=== PATIENT | female | born 1995 | race Two or more races ===

== ENCOUNTER 2022-12-04 07:02 | Outpatient (OUT) | payer OTHER, SELFPAY ==
[2022-12-04 07:28] LABS: Glucose Fasting 83 mg/dL (74-106)
[2022-12-04 09:00] LABS: Glucose 1 Hour 171 mg/dL
[2022-12-04 09:49] LABS: Glucose 2 Hour 130 mg/dL
[2022-12-04 11:14] LABS: Glucose 3 Hour 128 mg/dL
== END 2022-12-04 07:03 ==
PROVIDERS: Family Provider Specialist; PCP Obstetrics & Gynecology; Visit Provider Obstetrics & Gynecology
DX: R73.09 Other abnormal glucose (principal)
CPT/HCPCS: 36415; 82951; 82952

== ENCOUNTER 2022-12-16 10:21 | Outpatient (OUT) | payer OTHER, SELFPAY ==
--- NOTE | 2022-12-16 10:24 | US_ITS ---
[address] [address] Patient Name: DENISSE LOCKETT MRN: [id number] date: 1995 Sex: F Assigned Patient Location: US Current Patient Location: US Accession/Order Number: [id number] Exam Date: 12/16/2022 10:25 Report Date: 12/16/2022 15:33 At the request of: TOÑA AYAAL Procedure: US OB incomplete anatomy EXAMINATION: US OB incomplete anatomy HISTORY: INCOMPLETE ANATOMY FOLLOW UP HEART COMPARISON: No relevant comparison available. FINDINGS: Presentation: Transverse Heart rate: 150 bpm Anatomy: Normal four-chamber heart and cardiac outflow tracts. IMPRESSION: 1. Single live intrauterine 20 weeks 4 days. 2. Normal appearance of four-chamber heart and cardiac outflow tracts. Electronically authenticated by: ALEXA MEMBRENO Date: 12/16/2022 15:33
== END 2022-12-16 10:22 ==
LOC: US 10:22
PROVIDERS: Family Provider Specialist; PCP Obstetrics & Gynecology; Visit Provider Obstetrics & Gynecology
DX: Z36.2 Encounter for other antenatal screening follow-up (principal)
CPT/HCPCS: 76815

== ENCOUNTER 2023-01-01 15:06 | Outpatient (OUT) | payer OTHER, SELFPAY ==
--- NOTE | 2023-01-01 15:08 | US_ITS ---
[address] [address] Patient Name: DENISSE LOCKETT MRN: [id number] date: 1995 Sex: F Assigned Patient Location: US Current Patient Location: US Accession/Order Number: [id number] Exam Date: 01/01/2023 15:08 Report Date: 01/01/2023 16:57 At the request of: TOÑA AYALA Procedure: US OB growth EXAMINATION: US OB growth HISTORY: Size and consistent with dates COMPARISON: No relevant comparison available. FINDINGS: position: Cephalic presentation, longitudinal lie Amniotic fluid volume: 24.9 cm, polyhydramnios Largest fluid pocket: 5.4 cm Heart rate 164 bpm BPD: 7.8 cm, 31 weeks 2 days, 50% Head circumference: 29.3 cm, 32 weeks 3 days, 57% Abdominal circumference: 26.6 cm, 30 weeks 5 days, 44% Femur length: 6 cm, 31 weeks 1 day, 45% Estimated weight: 1699 g, 3 lbs. 12 oz., 46% Femur length BPD: 77 Femur length abdominal circumference: 22.5 50 minute] LUNGS: 20.4 Heart rate: 164 bpm Clinical age: 30 weeks [address]: 03/06/2023 Ultrasound age: 31 weeks [address]: 03/27/2023 IMPRESSION: Polyhydramnios, otherwise normal interval growth Electronically authenticated by: LYLA GOMEZ Date: 01/01/2023 16:57
== END 2023-01-01 15:07 | disposition home or self-care (01) ==
LOC: US 15:06
PROVIDERS: Family Provider Specialist; PCP Obstetrics & Gynecology; Visit Provider Obstetrics & Gynecology
DX: O26.843 Uterine size-date discrepancy, third trimester (principal); Z3A.31 31 weeks gestation of pregnancy; O40.3XX0 Polyhydramnios, third trimester, not applicable or unspecified
CPT/HCPCS: 76816

== ENCOUNTER 2023-02-12 20:28 | Outpatient (REF) | payer OTHER, SELFPAY | END 2023-02-12 20:29 | disposition home or self-care (01) | LOC: LAB 20:28 | PROVIDERS: Family Provider Specialist; PCP Obstetrics & Gynecology; Visit Provider Obstetrics & Gynecology | DX: Z34.93 Encounter for supervision of normal pregnancy, unspecified, third trimester (principal) | CPT/HCPCS: 87081 ==

== ENCOUNTER 2023-03-02 05:20 | Inpatient (IN) | payer OTHER, SELFPAY ==
[2023-03-02] VITALS (37 sets, daily range): BP systolic 73–100; BP diastolic 45–61; PULSE 62–86; RESP 8–21; TEMP 36.1–36.7; O2SAT 99–100
[2023-03-02] MEDS: 0.9 % SODIUM CHLORIDE 1,000 ML 1000 ML IV (06:00)
[2023-03-02 06:18] LABS: Basophils Percent Auto 0.4 % (0.2-2.0); Eosinophils Absolute Auto 0.1 10^3/uL (0.0-0.7); Eosinophils Percent Auto 1.2 % (0.9-7.0); Hematocrit 26.2 % (36.0-48.0); Hemoglobin 8.2 g/dL (12.0-16.0); Immature Granulocytes Abs Auto 0.03 10^3/uL (0.00-0.03); Immature Granulocytes Pct Auto 0.4 % (0.0-0.5); Lymphocytes Absolute Auto 2.1 10^3/uL (1.2-3.8); Lymphocytes Percent Auto 25.9 % (20.5-60.0); Mean Corpuscular HGB Conc 31.3 g/dL (29.9-35.2); Mean Corpuscular Hemoglobin 23.9 pg (26.7-34.0); Mean Corpuscular Volume 76.4 fL (81.0-99.0); Monocytes Absolute Auto 0.7 10^3/uL (0.3-0.8); Monocytes Percent Auto 8.8 % (1.7-12.0); Neutrophils Absolute Auto 5.1 10^3/uL (1.4-6.5); Neutrophils Percent Auto 63.3 % (43.0-75.0); Platelet Count 138 10^3/uL (150-450); Red Blood Count 3.43 10^6/uL (4.20-5.40); Red Cell Distribution Width 15.1 % (11.0-15.0); White Blood Count 8.1 10^3/uL (4.0-11.0)
[2023-03-02 06:28] LABS: Amphetamine Screen Urine NEGATIVE (NEGATIVE); Barbiturates Screen Urine NEGATIVE (NEGATIVE); Benzodiazepines Screen Urine NEGATIVE (NEGATIVE); Buprenorphine Screen Urine NEGATIVE (NEGATIVE); Cannabinoid Screen Urine NEGATIVE (NEGATIVE); Cocaine Screen Urine NEGATIVE (NEGATIVE); Methadone Screen Urine NEGATIVE (NEGATIVE); Methamphetamines Screen Urine NEGATIVE (NEGATIVE); Opiate Screen Urine NEGATIVE (NEGATIVE); Oxycodone Screen Urine NEGATIVE (NEGATIVE); Phencyclidine Screen Urine NEGATIVE (NEGATIVE); Tricyclic Antidepressant Urine NEGATIVE (NEGATIVE)
[2023-03-02] MEDS: 0.9 % SODIUM CHLORIDE 1,000 ML 125 ML IV (06:45)
[2023-03-02] MEDS: CEFAZOLIN SODIUM/DEXTROSE 2 GM/50 ML PIGGYBACK IV (07:13)
[2023-03-02] MEDS: FAMOTIDINE/PF 20 MG/2 ML VIAL IV (07:33)
[2023-03-02] MEDS: CITRIC ACID/SODIUM CITRATE 30 ML SOLUTION ORACIT SHOHL'S SOLN PO (07:33)
--- NOTE | 2023-03-02 08:41 | PM.OBPRCCS ---
Procedure Pre-op/Post-op diagnoses: Pre-Op/Post-Op Diagnoses Operation Date: 03/02/23 07:30 <No data on this case meets the specified criteria> Procedure: Procedures Operation Date: 03/02/23 07:30 Actual Procedure Side Surgeon p Repeat With Bilateral Salpingectomy Bilateral Mike Jimenes DO Statistician Applied: Estefany Argueta Estimated blood loss (mL): 575 Disposition: floor Anesthesia type: Spinal
--- NOTE | 2023-03-02 08:41 | PM.ONB ---
Brief Operative Note Date of procedure: 03/02/23 Pre-op diagnosis: iup at 39wks, previous c/s, desires permanent sterilization, multiparity Post-op diagnosis: same as pre-op Procedure: NAME OF PROCEDURE: [ section with bilateral salpingectomy ] PROCEDURE: Patient was taken back to the Operating Room where she was given a spinal anesthesia with Duramorph without difficulty. She was prepped and draped in the normal sterile fashion. A Pfannenstiel skin incision was then made 2?cm above the symphysis pubis and carried down to underlying rectus fascia using a Bovie. The fascia was incised in the midline and extended laterally using Barksdale scissors. Two Adalid clamps were placed on the superior aspect of the fascia and dissected off the underlying rectus muscles. The same was performed on the inferior aspect as well. The muscles were then in the midline. Peritoneum was identified and entered bluntly. The peritoneum was then extended superiorly and inferiorly with good visualization of the bladder. The bladder blade was inserted. Vesicouterine peritoneum was identified, tented up, and entered with Metzenbaum scissors. A bladder flap was then created digitally. The bladder blade was reinserted. A low transverse incision was made on the patient's uterus and extended laterally digitally. The infant was then delivered atraumatically after the bladder blade was removed in the cephalic position. The cord was clamped and cut. Cord blood was obtained. The was handed off to awaiting team. The patient's placenta was spontaneously delivered. The uterus was then exteriorized. The uterus was cleared of all clots and debris. The bladder blade was reinserted. The patient's uterine incision was closed using #0 Vicryl in a running lock fashion. Excellent hemostasis was assured.? The rt tube was identified and grasped with babock, the ligasure was used to transect and ligate the tube in its entirity, this was done on the contralateral side as well. The uterus was then returned to the patient's abdomen. The patient's abdomen was copiously irrigated using warm saline. Peritoneal gutters were cleared of all clots and debris. Again excellent hemostasis was assured. The patient's fascia was closed using #0 Vicryl in a running fashion. The patient's skin was closed using 4-0 Vicryl subcuticularly. The patient tolerated the procedure well. Sponge, lap, and needle counts were correct x2. The patient was taken to the Recovery Room in stable condition. Anesthesia: spinal Surgeon: Mike Jimenes [employer] Bpm Consultant: Estefany Argueta Estimated blood loss (mL): 575 Pathology: none sent Condition: stable Disposition: floor
[2023-03-02] MEDS: LACTATED RINGER'S SOLUTION 1,000 ML 50 ML IV (09:09)
[2023-03-02] MEDS: OXYTOCIN/0.9 % SODIUM CHLORIDE 20 UNITS/1,000 ML PLAST..BAG 20 UNIT IV (09:49)
[2023-03-02] MEDS: ONDANSETRON PF 4 MG/2 ML VIAL IV (11:27)
[2023-03-02] MEDS: CEFAZOLIN SODIUM/DEXTROSE,ISO 2 GM/50 ML PIGGYBACK IV (12:40)
[2023-03-02] MEDS: PROMETHAZINE HCL 25 MG/ML VIAL IM (14:37)
[2023-03-02] MEDS: KETOROLAC TROMETHAMINE 30 MG/ML VIAL IVP ×2 (16:09→23:13)
[2023-03-02] MEDS: ENOXAPARIN SODIUM 40 MG/0.4 ML SYRINGE SUBQ (21:17)
[2023-03-03] VITALS (23 sets, daily range): BP systolic 86–106; BP diastolic 48–62; PULSE 68–82; RESP 16–18; TEMP 36.5–37.1; O2SAT 97–100
[2023-03-03] MEDS: KETOROLAC TROMETHAMINE 30 MG/ML VIAL IVP ×3 (05:17→20:42)
[2023-03-03] MEDS: SIMETHICONE 80 MG TAB.CHEW PO (05:17)
[2023-03-03 06:26] LABS: Basophils Percent Auto 0.2 % (0.2-2.0); Eosinophils Absolute Auto 0.1 10^3/uL (0.0-0.7); Eosinophils Percent Auto 0.6 % (0.9-7.0); Immature Granulocytes Abs Auto 0.05 10^3/uL (0.00-0.03); Immature Granulocytes Pct Auto 0.4 % (0.0-0.5); Lymphocytes Absolute Auto 1.8 10^3/uL (1.2-3.8); Lymphocytes Percent Auto 15.8 % (20.5-60.0); Mean Corpuscular HGB Conc 30.7 g/dL (29.9-35.2); Mean Corpuscular Hemoglobin 24.5 pg (26.7-34.0); Mean Corpuscular Volume 79.8 fL (81.0-99.0); Mean Platelet Volume 12.6 fL (9.5-13.5); Monocytes Percent Auto 8.9 % (1.7-12.0); Neutrophils Absolute Auto 8.7 10^3/uL (1.4-6.5); Neutrophils Percent Auto 74.1 % (43.0-75.0); Platelet Count 139 10^3/uL (150-450); Red Blood Count 2.53 10^6/uL (4.20-5.40); Red Cell Distribution Width 15.2 % (11.0-15.0); White Blood Count 11.7 10^3/uL (4.0-11.0)
[2023-03-03 06:30] LABS: Hematocrit 20.2 % (36.0-48.0); Hemoglobin 6.2 g/dL (12.0-16.0)
--- NOTE | 2023-03-03 07:31 | W.PC.ACHO ---
Registration Status: ADM IN Primary Language: South African Preferred Language: South African Active Medications Generic Name Dose Route Start Last Admin Trade Name Freq PRN Reason Stop Dose Admin Al Hydroxide/Mg Hydroxide 2,400 mg 03/02/23 08:42 Magnesium Hydroxide 2,400 Mg/10 Ml Oral.Susp PO Q6H PRN Dyspepsia Diphenhydramine HCl 25 mg 03/02/23 08:42 Diphenhydramine Hcl 50 Mg/Ml (1ml) Vial IV 03/03/23 08:44 Q6H PRN Itching Docusate Sodium 100 mg 03/03/23 09:00 Docusate Sodium 100 Mg Capsule PO BID LACHELLE Enoxaparin Sodium 40 mg 03/02/23 21:00 03/02/23 21:17 Enoxaparin Sodium 40 Mg/0.4 Ml Syringe SUBQ 40 mg Q24H LACHELLE Administration Lactated Ringer's 1,000 mls @ 125 mls/hr 03/02/23 08:45 Lactated Ringers IV .Q8H LACHELLE Sodium Chloride 1,000 mls @ 125 mls/hr 03/03/23 07:01 Sodium Chloride 0.9% 1,000 Ml IV Q8H LACHELLE Ibuprofen 800 mg 03/02/23 08:42 Ibuprofen 400 Mg Tablet PO Q8H PRN Pain Ketorolac Tromethamine 30 mg 03/02/23 08:42 03/03/23 05:17 Ketorolac Tromethamine 30 Mg/Ml Vial IVP 03/04/23 08:43 30 mg Q6H PRN Administration Pain Ondansetron HCl 4 mg 03/02/23 08:42 03/02/23 11:27 Ondansetron Pf 4 Mg/2 Ml Vial IV 4 mg Q6H PRN Administration Nausea And Vomiting Ondansetron HCl 4 mg 03/02/23 08:42 Ondansetron 4 Mg Rapdis Tablet PO Q6H PRN Nausea And Vomiting Oxycodone/Acetaminophen 1 tab 03/02/23 08:42 Oxycodone Hcl/Acetaminophen 1 Tab Tablet PO Q4H PRN Pain Scale 4-6 Oxycodone/Acetaminophen 2 tab 03/02/23 08:42 Oxycodone Hcl/Acetaminophen 1 Tab Tablet PO Q4H PRN Pain Scale 7-10 Promethazine HCl 25 mg 03/02/23 14:26 03/02/23 14:37 Promethazine Hcl 25 Mg/Ml Vial IM 25 mg Q6H PRN Administration Nausea And Vomiting Senna 17.2 mg 03/02/23 20:00 Sennosides 8.6 Mg Tablet PO QHS PRN Constipation Simethicone 80 mg 03/02/23 08:42 03/03/23 05:17 Simethicone 80 Mg Tab.Chew PO 80 mg QID PRN Administration Abdominal Distention Diet Category Date Time Status Regular Consistency Diet Diet 03/02/23 Dinner Active Consults Category Date Time Status Consult to Anesthesiology Routine Cons 03/02/23 07:30 Ordered Respiratory Lung sounds [Throughout] clear Lung sounds [Throughout] clear Lung sounds [Throughout] clear Lung sounds [Throughout] clear Lung sounds [Throughout] clear Lung sounds [Throughout] clear Lung sounds [Throughout] clear Pulse Oximetry 100 Pulse Oximetry 100 Pulse Oximetry 100 Pulse Oximetry 100 Pulse Oximetry 100 Pulse Oximetry 100 Pulse Oximetry 100 Pulse Oximetry 100 Pulse Oximetry 100 Pulse Oximetry 99 Pulse Oximetry 100 Pulse Oximetry 100 Oxygen Delivery Method Room Air Oxygen Delivery Method Room Air Oxygen Delivery Method Room Air Oxygen Delivery Method Room Air Oxygen Delivery Method Room Air Oxygen Delivery Method Room Air Oxygen Delivery Method Room Air Oxygen Delivery Method Room Air Cardiology Heart Sounds Strong,Regular Heart Sounds Strong,Regular Heart Sounds Regular Heart Sounds Strong,Regular Bowels Bowel Pattern No Bowel Movement Bowel Pattern No Bowel Movement Renal Bladder Pattern Continent Bladder Pattern Continent
[2023-03-03] MEDS: DOCUSATE SODIUM 100 MG CAPSULE PO ×2 (09:11→20:42)
--- NOTE | 2023-03-03 09:51 | PM.OBPN ---
OB - PN: Subj Subjective Patient comments: incisional pain and other (shoulder pain ) [place] status: doing well feeding status: exclusively Exam Narrative Exam Narrative: patient states she feels tired and her shoulders hurt. She does rate her pain a 5 but states she did not take any Percocet or ask for any. I did discuss with her pain Meds and they are ordered and are okay to take with . PVU Constitutional Vital Signs, click to edit/add: Last Vital Signs Temp 97.7 F 03/03/23 09:18 Pulse 82 03/03/23 09:18 Resp 16 03/03/23 09:18 BP 93/62 03/03/23 09:18 Pulse Ox 100 03/03/23 09:18 O2 Del Method Room Air 03/03/23 09:18 Documenting provider has reviewed patient's vital signs: yes Common normals: no apparent distress and oriented x3 General appearance: cooperative and comfortable Orientation/consciousness: Yes awake, Yes oriented to person, Yes oriented to place and Yes oriented to time Eye General eye: normal appearance of both eyes Neck & C-Spine Common normals: full ROM and no lymphadenopathy Lymph Lymphatic: no lymphadenopathy noted Chest Common normals: inspection of chest normal Respiratory Common normals: normal respiratory effort, no retractions, no use of accessory muscles and clear to auscultation bilaterally Effort & inspection: able to speak in complete sentences and symmetric chest movement Cardio Common normals: regular rate, regular rhythm and no murmurs GI Common normals: Normal to inspection, nondistended, normoactive bowel sounds present Auscultation: normoactive bowel sounds and other (passing gas ) Palpation: soft and other (FF U/-1) Common normals: no CVA tenderness and external appearance normal Extremity Common normals: normal to inspection, full ROM, normal capillary refill and no calf tenderness (Taylor's negative ) Neuro Common normals: oriented x3 Sensorium/orientation: awake, alert, oriented to person, oriented to place and oriented to time Psych Common normals: mental status grossly normal, thought process normal, cooperative, affect normal and speech normal Results Labs Labs: Short CBC 03/03/23 Range/Units 06:21 WBC 11.7 H (4.0-11.0) 10^3/uL Hgb 6.2 L* D (12.0-16.0) g/dL Hct 20.2 L* (36.0-48.0) % Plt Count 139 L (150-450) 10^3/uL Pulse Oximetry SpO2 results: 100 OB - PN: A/P Assessment and Plan (1) care following delivery: Plan Hgb count 6.2, patient is slightly symptomatic with SOB with ambulating. No chest pain, no dizziness, no headache. will transfuse 1 unit of blood. Plan - day: 1 Plan: routine postop care Time Spent with Patient Time: Total time spent is greater than 50% in coordination of care (as documented) at patient's floor/unit and/or counseling patient: Total time spent with greater than 50% in coordination of care (as documented) at patient's floor/unit and/or counseling patient: less than 15 minutes
--- NOTE | 2023-03-03 19:15 | W.PC.ACHO ---
Registration Status: ADM IN Primary Language: Dominican Preferred Language: Dominican Report given to Morgan palacios RN. Care relinquished. Active Medications Generic Name Dose Route Start Last Admin Trade Name Freq PRN Reason Stop Dose Admin Al Hydroxide/Mg Hydroxide 2,400 mg 03/02/23 08:42 Magnesium Hydroxide 2,400 Mg/10 Ml Oral.Susp PO Q6H PRN Dyspepsia Docusate Sodium 100 mg 03/03/23 09:00 03/03/23 09:11 Docusate Sodium 100 Mg Capsule PO 100 mg BID LACHELLE Administration Enoxaparin Sodium 40 mg 03/02/23 21:00 03/02/23 21:17 Enoxaparin Sodium 40 Mg/0.4 Ml Syringe SUBQ 40 mg Q24H LACHELLE Administration Lactated Ringer's 1,000 mls @ 125 mls/hr 03/02/23 08:45 Lactated Ringers IV .Q8H LACHELLE Sodium Chloride 1,000 mls @ 125 mls/hr 03/03/23 07:01 Sodium Chloride 0.9% 1,000 Ml IV Q8H LACHELLE Ibuprofen 800 mg 03/02/23 08:42 Ibuprofen 400 Mg Tablet PO Q8H PRN Pain Ketorolac Tromethamine 30 mg 03/02/23 08:42 03/03/23 14:08 Ketorolac Tromethamine 30 Mg/Ml Vial IVP 03/04/23 08:43 30 mg Q6H PRN Administration Pain Ondansetron HCl 4 mg 03/02/23 08:42 03/02/23 11:27 Ondansetron Pf 4 Mg/2 Ml Vial IV 4 mg Q6H PRN Administration Nausea And Vomiting Ondansetron HCl 4 mg 03/02/23 08:42 Ondansetron 4 Mg Rapdis Tablet PO Q6H PRN Nausea And Vomiting Oxycodone/Acetaminophen 1 tab 03/02/23 08:42 03/03/23 09:11 Oxycodone Hcl/Acetaminophen 1 Tab Tablet PO 1 tab Q4H PRN Administration Pain Scale 4-6 Oxycodone/Acetaminophen 2 tab 03/02/23 08:42 Oxycodone Hcl/Acetaminophen 1 Tab Tablet PO Q4H PRN Pain Scale 7-10 Promethazine HCl 25 mg 03/02/23 14:26 03/02/23 14:37 Promethazine Hcl 25 Mg/Ml Vial IM 25 mg Q6H PRN Administration Nausea And Vomiting Senna 17.2 mg 03/02/23 20:00 Sennosides 8.6 Mg Tablet PO QHS PRN Constipation Simethicone 80 mg 03/02/23 08:42 03/03/23 05:17 Simethicone 80 Mg Tab.Chew PO 80 mg QID PRN Administration Abdominal Distention Respiratory Lung sounds [Throughout] clear Lung sounds [Throughout] clear Lung sounds [Throughout] clear Lung sounds [Throughout] clear Lung sounds [Throughout] clear Lung sounds [Throughout] clear Pulse Oximetry 99 Pulse Oximetry 100 Pulse Oximetry 100 Pulse Oximetry 100 Pulse Oximetry 100 Pulse Oximetry 100 Pulse Oximetry 100 Pulse Oximetry 100 Pulse Oximetry 100 Pulse Oximetry 100 Pulse Oximetry 97 Pulse Oximetry 100 Pulse Oximetry 100 Pulse Oximetry 100 Oxygen Delivery Method Room Air Oxygen Delivery Method Room Air Oxygen Delivery Method Room Air Oxygen Delivery Method Room Air Oxygen Delivery Method Room Air Oxygen Delivery Method Room Air Oxygen Delivery Method Room Air Oxygen Delivery Method Room Air Oxygen Delivery Method Room Air Cardiology Heart Sounds Strong,Regular Heart Sounds Strong,Regular Bowels Bowel Pattern No Bowel Movement Bowel Pattern No Bowel Movement Renal Bladder Pattern Continent Bladder Pattern Continent Catheter Date Urinary Catheter Removed 03/03/23 [Urethral] Time Urinary Catheter 14:30 Discontinued [Urethral]
[2023-03-04] VITALS (7 sets, daily range): BP systolic 99–103; BP diastolic 56–63; PULSE 59–82; RESP 16; TEMP 36.7–36.9
[2023-03-04] MEDS: KETOROLAC TROMETHAMINE 30 MG/ML VIAL IVP (03:59)
--- NOTE | 2023-03-04 07:20 | W.PC.ACHO ---
Registration Status: ADM IN Primary Language: Turkish Preferred Language: Turkish report given to Anuj MANN Active Medications Generic Name Dose Route Start Last Admin Trade Name Freq PRN Reason Stop Dose Admin Al Hydroxide/Mg Hydroxide 2,400 mg 03/02/23 08:42 Magnesium Hydroxide 2,400 Mg/10 Ml Oral.Susp PO Q6H PRN Dyspepsia Docusate Sodium 100 mg 03/03/23 09:00 03/03/23 20:42 Docusate Sodium 100 Mg Capsule PO 100 mg BID LACHELLE Administration Enoxaparin Sodium 40 mg 03/02/23 21:00 03/02/23 21:17 Enoxaparin Sodium 40 Mg/0.4 Ml Syringe SUBQ 40 mg Q24H LACHELLE Administration Lactated Ringer's 1,000 mls @ 125 mls/hr 03/02/23 08:45 Lactated Ringers IV .Q8H LACHELLE Sodium Chloride 1,000 mls @ 125 mls/hr 03/03/23 07:01 Sodium Chloride 0.9% 1,000 Ml IV Q8H [facility] Ibuprofen 800 mg 03/02/23 08:42 Ibuprofen 400 Mg Tablet PO Q8H PRN Pain Ketorolac Tromethamine 30 mg 03/02/23 08:42 03/04/23 03:59 Ketorolac Tromethamine 30 Mg/Ml Vial IVP 03/04/23 08:43 30 mg Q6H PRN Administration Pain Ondansetron HCl 4 mg 03/02/23 08:42 03/02/23 11:27 Ondansetron Pf 4 Mg/2 Ml Vial IV 4 mg Q6H PRN Administration Nausea And Vomiting Ondansetron HCl 4 mg 03/02/23 08:42 Ondansetron 4 Mg Rapdis Tablet PO Q6H PRN Nausea And Vomiting Oxycodone/Acetaminophen 1 tab 03/02/23 08:42 03/03/23 19:19 Oxycodone Hcl/Acetaminophen 1 Tab Tablet PO 1 tab Q4H PRN Administration Pain Scale 4-6 Oxycodone/Acetaminophen 2 tab 03/02/23 08:42 Oxycodone Hcl/Acetaminophen 1 Tab Tablet PO Q4H PRN Pain Scale 7-10 Promethazine HCl 25 mg 03/02/23 14:26 03/02/23 14:37 Promethazine Hcl 25 Mg/Ml Vial IM 25 mg Q6H PRN Administration Nausea And Vomiting Senna 17.2 mg 03/02/23 20:00 Sennosides 8.6 Mg Tablet PO QHS PRN Constipation Simethicone 80 mg 03/02/23 08:42 03/03/23 05:17 Simethicone 80 Mg Tab.Chew PO 80 mg QID PRN Administration Abdominal Distention Respiratory Lung sounds [Throughout] clear Lung sounds [Throughout] clear Lung sounds [Throughout] clear Pulse Oximetry 99 Pulse Oximetry 100 Pulse Oximetry 100 Pulse Oximetry 100 Pulse Oximetry 100 Pulse Oximetry 100 Pulse Oximetry 100 Pulse Oximetry 100 Pulse Oximetry 100 Pulse Oximetry 100 Pulse Oximetry 97 Pulse Oximetry 100 Pulse Oximetry 100 Oxygen Delivery Method Room Air Oxygen Delivery Method Room Air Oxygen Delivery Method Room Air Oxygen Delivery Method Room Air Catheter Date Urinary Catheter Removed 03/03/23 [Urethral] Time Urinary Catheter 14:30 Discontinued [Urethral]
[2023-03-04 07:38] LABS: Basophils Percent Auto 0.3 % (0.2-2.0); Eosinophils Absolute Auto 0.2 10^3/uL (0.0-0.7); Eosinophils Percent Auto 1.8 % (0.9-7.0); Immature Granulocytes Abs Auto 0.09 10^3/uL (0.00-0.03); Immature Granulocytes Pct Auto 0.8 % (0.0-0.5); Lymphocytes Absolute Auto 2.2 10^3/uL (1.2-3.8); Mean Corpuscular HGB Conc 31.2 g/dL (29.9-35.2); Mean Corpuscular Hemoglobin 24.7 pg (26.7-34.0); Mean Corpuscular Volume 79.3 fL (81.0-99.0); Mean Platelet Volume 12.9 fL (9.5-13.5); Monocytes Absolute Auto 0.8 10^3/uL (0.3-0.8); Monocytes Percent Auto 7.1 % (1.7-12.0); Neutrophils Absolute Auto 7.8 10^3/uL (1.4-6.5); Platelet Count 126 10^3/uL (150-450); Red Blood Count 2.71 10^6/uL (4.20-5.40); Red Cell Distribution Width 15.6 % (11.0-15.0); White Blood Count 11.1 10^3/uL (4.0-11.0)
--- NOTE | 2023-03-04 07:47 | PM.OBPN ---
OB - PN: Subj Subjective Patient comments: no complaints and pain well controlled [place] status: doing well Exam Constitutional Vital Signs, click to edit/add: Last Vital Signs Temp 98.7 F 03/03/23 10:18 Pulse 68 03/03/23 10:18 Resp 16 03/03/23 16:28 BP 106/60 03/03/23 16:28 Pulse Ox 99 03/03/23 10:35 O2 Del Method Room Air 03/03/23 16:28 Documenting provider has reviewed patient's vital signs: yes Common normals: no apparent distress Respiratory Common normals: normal respiratory effort and clear to auscultation bilaterally Cardio Common normals: regular rate and regular rhythm GI Common normals: Normal to inspection, nondistended, normoactive bowel sounds present Extremity Common normals: no clubbing, cyanosis or edema and no calf tenderness OB - PN: A/P Assessment and Plan (1) care following delivery: Plan - day: 2 Plan: routine postop care, discharge home and follow up 6 weeks Time Spent with Patient Time: Total time spent is greater than 50% in coordination of care (as documented) at patient's floor/unit and/or counseling patient: Total time spent with greater than 50% in coordination of care (as documented) at patient's floor/unit and/or counseling patient: less than 15 minutes
[2023-03-04 07:58] LABS: Hemoglobin 6.7 g/dL (12.0-16.0)
[2023-03-04 07:59] LABS: Hematocrit 21.5 % (36.0-48.0)
[2023-03-04] MEDS: DOCUSATE SODIUM 100 MG CAPSULE PO ×2 (09:55→21:03)
--- NOTE | 2023-03-04 19:09 | W.PC.ACHO ---
Registration Status: ADM IN Primary Language: Central African Preferred Language: [place] African Active Medications Generic Name Dose Route Start Last Admin Trade Name Freq PRN Reason Stop Dose Admin Al Hydroxide/Mg Hydroxide 2,400 mg 03/02/23 08:42 Magnesium Hydroxide 2,400 Mg/10 Ml Oral.Susp PO Q6H PRN Dyspepsia Docusate Sodium 100 mg 03/03/23 09:00 03/04/23 09:55 Docusate Sodium 100 Mg Capsule PO 100 mg BID LACHELLE Administration Enoxaparin Sodium 40 mg 03/02/23 21:00 03/02/23 21:17 Enoxaparin Sodium 40 Mg/0.4 Ml Syringe SUBQ 40 mg Q24H LACHELLE Administration Lactated Ringer's 1,000 mls @ 125 mls/hr 03/02/23 08:45 Lactated Ringers IV .Q8H LACHELLE Sodium Chloride 1,000 mls @ 125 mls/hr 03/03/23 07:01 Sodium Chloride 0.9% 1,000 Ml IV Q8H LACHELLE Ibuprofen 800 mg 03/02/23 08:42 Ibuprofen 400 Mg Tablet PO Q8H PRN Pain Ondansetron HCl 4 mg 03/02/23 08:42 03/02/23 11:27 Ondansetron Pf 4 Mg/2 Ml Vial IV 4 mg Q6H PRN Administration Nausea And Vomiting Ondansetron HCl 4 mg 03/02/23 08:42 Ondansetron 4 Mg Rapdis Tablet PO Q6H PRN Nausea And Vomiting Oxycodone/Acetaminophen 1 tab 03/02/23 08:42 03/04/23 12:10 Oxycodone Hcl/Acetaminophen 1 Tab Tablet PO 1 tab Q4H PRN Administration Pain Scale 4-6 Oxycodone/Acetaminophen 2 tab 03/02/23 08:42 Oxycodone Hcl/Acetaminophen 1 Tab Tablet PO Q4H PRN Pain Scale 7-10 Promethazine HCl 25 mg 03/02/23 14:26 03/02/23 14:37 Promethazine Hcl 25 Mg/Ml Vial IM 25 mg Q6H PRN Administration Nausea And Vomiting Senna 17.2 mg 03/02/23 20:00 Sennosides 8.6 Mg Tablet PO QHS PRN Constipation Simethicone 80 mg 03/02/23 08:42 03/03/23 05:17 Simethicone 80 Mg Tab.Chew PO 80 mg QID PRN Administration Abdominal Distention Respiratory Lung sounds [Throughout] clear Lung sounds [Throughout] clear Renal Bladder Pattern Continent
[2023-03-04] MEDS: IBUPROFEN 400 MG TABLET 800 MG PO (21:03)
[2023-03-04] MEDS: ENOXAPARIN SODIUM 40 MG/0.4 ML SYRINGE SUBQ (21:03)
--- NOTE | 2023-03-05 07:17 | PC.NURSE ---
Report given to Leif Higuera RN.
--- NOTE | 2023-03-05 08:50 | PM.OBPN ---
OB - PN: Subj Subjective Patient comments: no complaints [place] status: doing well Exam Constitutional Vital Signs, click to edit/add: Last Vital Signs Temp 98.2 F 03/04/23 23:32 Pulse 69 03/04/23 23:22 Resp 16 03/04/23 23:32 BP 103/60 03/04/23 23:22 Pulse Ox 99 03/03/23 10:35 O2 Del Method Room Air 03/04/23 23:28 Documenting provider has reviewed patient's vital signs: yes Common normals: no apparent distress General appearance: cooperative Orientation/consciousness: Yes awake, Yes oriented to person, Yes oriented to place and Yes oriented to time HENMT Common normals: normocephalic Eye Common normals: PERRL Neck & C-Spine Common normals: full ROM Lymph Lymphatic: no lymphadenopathy noted Chest Common normals: inspection of chest normal Respiratory Common normals: normal respiratory effort Effort & inspection: able to speak in complete sentences Auscultation: clear to auscultation bilaterally Cardio Common normals: regular rate and regular rhythm Rate: regular rate Rhythm: regular rhythm GI Common normals: Normal to inspection, nondistended, normoactive bowel sounds present Palpation: soft and firm Percussion: normal to percussion Back & Pelvis Common normals: no CVA tenderness and no thoracic nor lumbar tenderness Extremity Common normals: normal to inspection, full ROM, normal capillary refill, no joint enlargement and no calf tenderness Neuro Common normals: oriented x3 Psych Common normals: mental status grossly normal, thought process normal, cooperative, affect normal and speech normal OB - PN: A/P Assessment and Plan (1) care following delivery: Plan - day: 3 Plan: routine postop care and discharge home Comment: follow up in [address] Jimenes Time Spent with Patient Time: Total time spent is greater than 50% in coordination of care (as documented) at patient's floor/unit and/or counseling patient: Total time spent with greater than 50% in coordination of care (as documented) at patient's floor/unit and/or counseling patient: less than 15 minutes
--- NOTE | 2023-03-05 08:57 | P.DS_ITS ---
DS: Providers Provider Date of admission: 03/02/23 05:20 Primary care physician: Non-Staff Physician, Admitting clinician: Mike Jimenes Attending physician on admission: Mike Jimenes Consults: 03/02/23 07:30 Consult to Anesthesiology Routine Consulting Provider: Dick Yi Reason for consultation: c/s Has provider been notified: Yes Attending physician on discharge: SAL AG Discharging clinician: SAL AG Anticipated date of discharge: 03/05/23 DS: Diagnosis Discharge Diagnosis (1) care following delivery: Plan discharge to home with . follow up with Dr Jimenes in 1 week OB - DS: Summary Peripartum Data - Procedures: Procedures Operation Date: 03/02/23 07:30 Actual Procedure Side Surgeon p Repeat With Bilateral Salpingectomy Bilateral Mike Jimenes DO Peripartum Data - Vaginal Delivery Procedures: Procedures Operation Date: 03/02/23 07:30 Actual Procedure Side Surgeon p Repeat With Bilateral Salpingectomy Bilateral Mike Jimenes DO Complications complications: none Delivery method: section Gender: female Time Spent with Patient Time attestation: Total time spent providing and/or coordinating discharge services: Time spent: less than 30 minutes Exam Constitutional Vital Signs, click to edit/add: Last Vital Signs Temp 98.2 F 03/04/23 23:32 Pulse 69 03/04/23 23:22 Resp 16 03/04/23 23:32 BP 103/60 03/04/23 23:22 Pulse Ox 99 03/03/23 10:35 O2 Del Method Room Air 03/04/23 23:28 Documenting provider has reviewed patient's vital signs: yes Common normals: no apparent distress [facility] Common normals: normocephalic Neck & C-Spine Common normals: full ROM and no lymphadenopathy Lymph Lymphatic: no lymphadenopathy noted Respiratory Common normals: normal respiratory effort, no retractions and clear to auscultation bilaterally Cardio Common normals: no JVD, regular rate and regular rhythm GI Common normals: Normal to inspection, nondistended, normoactive bowel sounds present Auscultation: normoactive bowel sounds Common normals: no CVA tenderness Back & Pelvis Common normals: no CVA tenderness, thoracic and lumbar spine normal to inspection and no thoracic nor lumbar tenderness Extremity Common normals: normal to inspection and full ROM Neuro Common normals: oriented x3 Psych Common normals: mental status grossly normal, thought process normal, cooperative, affect normal and speech normal Discharge Plan Discharge Disposition: Home, Self-Care Condition: Good Discharge Medications: New ibuprofen 800 mg tablet 800 mg PO Q8H PRN (Reason: pain) 14 Days Qty: 40 0RF oxycodone-acetaminophen [Percocet] 5-325 mg tablet 1 tab PO Q6H PRN (Reason: pain) 7 Days Qty: 28 0RF Continued ferrous sulfate 325 mg (65 mg iron) tablet Activity: increase activity as tolerated Diet: advance to your usual diet and regular diet Forms: Portal Instructions
[2023-03-05] MEDS: IBUPROFEN 400 MG TABLET 800 MG PO (09:29)
[2023-03-05] MEDS: DOCUSATE SODIUM 100 MG CAPSULE PO (09:29)
[2023-03-05 09:30] VITALS: BP 103/70; RESP 16; TEMP 36.7
== END 2023-03-05 15:45 | disposition home or self-care (01) | DRG 539 ==
PROVIDERS: Midwife; Admitting Provider Obstetrics & Gynecology; Family Provider Specialist; Visit Provider Obstetrics & Gynecology
PROC: 10D00Z1 Extraction of Products of Conception, Low, Open Approach (ICD-10-PCS; CPT 59514; principal; 2023-03-02 07:30)
DX: O34.211 Maternal care for low transverse scar from previous cesarean delivery (principal); Z3A.39 39 weeks gestation of pregnancy; Z37.0 Single live birth; O99.02 Anemia complicating childbirth; Z79.899 Other long term (current) drug therapy; Z87.442 Personal history of urinary calculi; Z86.19 Personal history of other infectious and parasitic diseases; Z87.891 Personal history of nicotine dependence; Z83.3 Family history of diabetes mellitus; Z82.49 Family history of ischemic heart disease and other diseases of the circulatory system
CPT/HCPCS: 36415; 36430; 80307; 85025; 86850; 86900; 86901; 86920; 88302; 94667; 94668; 94761; 96372; 96374; 96375; 96376; P9016

== ENCOUNTER 2023-09-28 21:25 | Outpatient (REF) | payer OTHER, SELFPAY ==
[2023-10-01 22:07] LABS: Age Gdln ACOG Testing Note (.); IGP, rfx Aptima HPV ASCU Note (.)
== END 2023-09-28 21:26 | disposition home or self-care (01) ==
LOC: LAB 21:25
PROVIDERS: Family Provider Specialist; Visit Provider Physician Assistant
DX: Z01.419 Encounter for gynecological examination (general) (routine) without abnormal findings (principal)
CPT/HCPCS: G0145